=== PATIENT | female | born 1970 | race Two or more races ===

== ENCOUNTER 2022-04-24 06:35 | Outpatient (CLI) | payer OTHER | END 2022-04-24 06:36 | disposition home or self-care (01) | LOC: LAB 06:35 | PROVIDERS: ATTEND General Practice | DX: E78.2 Mixed hyperlipidemia (principal); I10 Essential (primary) hypertension; Z11.59 Encounter for screening for other viral diseases; Z11.4 Encounter for screening for human immunodeficiency virus [HIV]; Z13.228 Encounter for screening for other metabolic disorders; Z13.220 Encounter for screening for lipoid disorders; Z13.0 Encounter for screening for diseases of the blood and blood-forming organs and certain disorders involving the immune mechanism; Z11.3 Encounter for screening for infections with a predominantly sexual mode of transmission; Z13.89 Encounter for screening for other disorder ==

== ENCOUNTER 2022-06-09 10:30 | Outpatient (CLI) | payer OTHER | END 2022-06-09 10:40 | disposition home or self-care (01) | LOC: PPH VACUNA 10:30 | PROVIDERS: ATTEND Emergency Medicine Pediatric Emergency Medicine | DX: Z23 Encounter for immunization (principal) ==

== ENCOUNTER → 2023-04-15 | Outpatient (CLI) | payer OTHER | END | disposition home or self-care (01) | LOC: PPH VACUNA | PROVIDERS: ATTEND Emergency Medicine Pediatric Emergency Medicine | DX: Z23 Encounter for immunization (principal) | CPT/HCPCS: 90686; G0008 ==

== ENCOUNTER → 2023-11-02 10:54 | Outpatient (CLI) | payer OTHER ==
[2023-11-02 11:32] LABS: MYCOPLASMA PNEUMONIAE IGM REACTIVE (NO REACTIVE)
== END | disposition home or self-care (01) ==
LOC: LAB 09:06
PROVIDERS: ATTEND Radiology Diagnostic Radiology
DX: R05.9 Cough, unspecified (principal); J04.0 Acute laryngitis

== ENCOUNTER 2024-06-27 09:00 | Outpatient (CLI) | payer OTHER ==
[~2024-06-27 09:00] MED LIST: ACETAMINOPHEN500 M2 PO; ALLER-TEC10 MG PO; COZAAR25 MG; MOLNUPIRAVIR (200 MG PO; MUCINEX DM ER1 EAC1 PO; PAXLOVID 300-11 EAC1 PO; VASOFLEX D1 CA1 EACH
== END 2024-06-27 09:10 | disposition home or self-care (01) ==
LOC: PPH VACUNA 09:00
PROVIDERS: ATTEND Emergency Medicine Pediatric Emergency Medicine
DX: Z23 Encounter for immunization (principal)

== ENCOUNTER 2024-08-23 07:06 | Emergency (ER) | payer OTHER ==
[~2024-08-23] VITALS: Ht 172.7 cm; Wt 73.5 kg
[2024-08-23] MEDS ORDERED: GENTAMICIN SULFA5 ML OP (10:30)
== END 2024-08-23 10:53 | disposition home or self-care (01) ==
LOC: ER 07:09
DX: H10.89 Other conjunctivitis (principal); Z88.0 Allergy status to penicillin; I10 Essential (primary) hypertension; J45.909 Unspecified asthma, uncomplicated

== ENCOUNTER 2024-11-14 10:17 | Outpatient (CLI) | payer OTHER ==
[~2024-11-14 10:17] MED LIST changes: +GENTAMICIN SULFA5 ML OP
[2024-11-16 05:06] LABS: HEPATITIS A ANTIBODY IGG Positive (Negative); HEPATITIS B SURFACE ANTIBODY Reactive (.); HEPATITIS C VIRUS ANTIBODY Non Reactive (Non Reactive)
== END 2024-11-14 10:20 | disposition home or self-care (01) ==
LOC: LAB 10:17
DX: A64 Unspecified sexually transmitted disease (principal); B19.9 Unspecified viral hepatitis without hepatic coma

== ENCOUNTER 2024-11-16 10:37 | Outpatient (CLI) | payer OTHER | END 2024-11-16 10:46 | disposition home or self-care (01) | LOC: LAB 10:37 | DX: R76.8 Other specified abnormal immunological findings in serum (principal) ==

== ENCOUNTER 2025-06-28 10:55 | Outpatient (CLI) | payer OTHER | END 2025-06-28 11:05 | disposition home or self-care (01) | LOC: PPH VACUNA 10:55 | PROVIDERS: ATTEND Emergency Medicine Pediatric Emergency Medicine | DX: Z23 Encounter for immunization (principal) ==